=== PATIENT | male | born 1930 | race Caucasian/White ===

== ENCOUNTER 2018-12-31 09:23 | Emergency (ER) | payer MEDICARE, OTHER ==
[~2018-12-31] VITALS: Ht 172.7 cm; Wt 86.2 kg
[2018-12-31] MEDS ORDERED: HYDROCHLOROTHIA25 MG ORAL (09:41)
[2018-12-31] MEDS ORDERED: XARELTO10 MG ORAL (09:41)
[2018-12-31] MEDS ORDERED: METOPROLOL SUC100 MG ORAL (09:41)
[2018-12-31] MEDS ORDERED: ATORVASTATIN CA40 MG ORAL (09:41)
--- NOTE | 2018-12-31 10:48 | Emergency Room Report ---
History of Present Illness General Chief Complaint: Lower Extremity Injury Source: Patient Present Illness HPI This patient states that for the past 2 days he is noted some pain in his left foot. He denies any injury. He notes that this morning there was swelling on the top of his foot. He denies fever or chills. He denies nausea or vomiting. He has no other symptoms. Allergies: Coded Allergies: No Known Allergies (Unverified , 12/31/18) Patient History Past Medical History: see triage record, DM, HTN, CAD, AFib Social History: Denies: smoking, alcohol use, drug use Reviewed Nursing Documentation: PMH: Agreed; PSxH: Agreed Nursing Documentation-PMH Past Medical History: No History, Except For Hx Cardiac Problems: Yes - A-fib Hx Hypertension: Yes Hx Diabetes: Yes Hx Gastrointestinal Problems: Yes - Colostomy, Diverticulitis Review of Systems All Other Systems: negative except mentioned in HPI Physical Exam Vital Signs Date Time Temp Pulse Resp B/P (MAP) Pulse Ox O2 Delivery O2 Flow Rate FiO2 12/31/18 09:35 98.4 96 16 146/79 (101) 95 Room Air Sp02 EP Interpretation: reviewed, normal General Appearance: no apparent distress, alert, GCS 15, non-toxic Head: normocephalic, atraumatic Eyes: bilateral eye normal inspection, bilateral eye PERRL ENT: hearing grossly normal, normal pharynx, no angioedema, normal voice Respiratory: normal breath sounds, no respiratory distress, no retraction, no accessory muscle use, speaking full sentences Rectal: deferred Musculoskeletal: back normal, gait/station normal, normal range of motion, swelling - There is a localized area on the lateral dorsal foot approximately [id number] with some mild ecchymosis. Neurologic: alert, oriented x3, responsive, motor strength/tone normal, sensory intact, speech normal Psychiatric: judgement/insight normal, memory normal, mood/affect normal, no suicidal/homicidal ideation Skin: no rash, warm/dry, well hydrated, other - See above in MSK exam Medical Decision Making Diagnostic Impression: Primary Impression: Cellulitis Additional Impression: Cellulitis vs. insect bite ER Course This patient has a localized area of swelling, erythema and a slight ecchymoses that could be secondary to an insect bite versus an early cellulitis versus a localized allergic reaction. Go ahead and treat this patient with a course of antibiotics. I will also give the patient topical hydrocortisone cream. The patient was instructed to elevate the foot. X-ray of the foot is unremarkable. The patient was instructed to follow-up closely with his primary care physician. He is given close return precautions and follow-up instructions. Other X-Ray Diagnostic Results Other X-Ray Diagnostic Results : X-Ray ordered: L. foot # of Views/Limited Vs Complete: Complete Indication: Swelling EP Interpretation: Yes Interpretation: no dislocation, no fractures Impression: No acute disease Electronically Signed by: Alanna Acharya DO Last Vital Signs Date Time Temp Pulse Resp B/P (MAP) Pulse Ox O2 Delivery O2 Flow Rate FiO2 12/31/18 09:35 98.4 96 16 146/79 (101) 95 Room Air Status: improved Disposition: HOME, SELF-CARE Condition: Improved Alanna Acharya DO Dec 31, 2018 10:48
[2018-12-31] MEDS ORDERED: ANTI-ITCH28 G1 TP (10:52)
[2018-12-31] MEDS ORDERED: CEPHALEXIN500 MG ORAL (10:52)
[2018-12-31 11:12] VITALS: BP 137/70
--- NOTE | 2018-12-31 11:18 | Diagnostic Imaging Report ---
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 No acute fractures. No dislocations. There are small plantar and calcaneal spurs. Impression: No acute bony trauma
== END 2018-12-31 11:13 | disposition home or self-care (01) ==
LOC: EMR 09:59
DX: M79.672 Pain in left foot (principal); M79.89 Other specified soft tissue disorders; I10 Essential (primary) hypertension; E11.9 Type 2 diabetes mellitus without complications; I48.91 Unspecified atrial fibrillation; I25.10 Atherosclerotic heart disease of native coronary artery without angina pectoris; Z93.3 Colostomy status; Z87.19 Personal history of other diseases of the digestive system; M77.32 Calcaneal spur, left foot
CPT/HCPCS: 99283

== ENCOUNTER 2020-09-15 16:19 | Emergency (ER) | payer MEDICARE, OTHER ==
[~2020-09-15] VITALS: Ht 182.9 cm; Wt 86.2 kg
[~2020-09-15 16:19] MED LIST: ANTI-ITCH28 G1 TP; ATORVASTATIN CA40 MG ORAL; CEPHALEXIN500 MG ORAL; HYDROCHLOROTHIA25 MG ORAL; METOPROLOL SUC100 MG ORAL; XARELTO10 MG ORAL
[2020-09-15 16:32] VITALS: BP 140/90
[2020-09-15] MEDS ORDERED: Lidocaine 1% 10mg/ml/Epi 0.005mg/ml 30ml vial INJ ONE (16:45)
[2020-09-15] MEDS ORDERED: Lidocaine 1% 10mg/ml/Epi 0.005mg/ml 10ml INJ ONE (16:49)
--- NOTE | 2020-09-15 17:20 | Emergency Room Report ---
History of Present Illness General Chief Complaint: General Complaint Source: Patient Present Illness HPI Patient presents with continued bleeding lesion on his scalp. He had a surgical procedure to remove a skin cancer there earlier. He is taking Xarelto. He is soaked at least 2 dressings. Denies any history of anemia in the past. He feels no dizziness or shortness of breath. His tetanus is up-to-date. He denies any pain at the site. The patient states that he has multiple lesions of his skin. He feels this is related to exposure to fluorescent lighting. Patient takes Xarelto for prior stroke and atrial fibrillation. Patient denies exposure to Covid positive contacts. He recently received vaccination. No fevers, chills, sore throat, chest pain, palpitations, nausea, vomiting, diarrhea, dysuria, abdominal pain, joint pain, depression, anxiety, visual changes, dizziness, headache. 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 Reviewed Nursing Documentation: PMH: Agreed; PSxH: Agreed Nursing Documentation-PMH Hx Cardiac Problems: Yes - A-fib Hx Hypertension: Yes Hx Diabetes: Yes Hx Cancer: Yes Hx Gastrointestinal Problems: Yes - Colostomy, Diverticulitis Review of Systems All Other Systems: negative except mentioned in HPI Physical Exam Vital Signs Date Time Temp Pulse Resp B/P (MAP) Pulse Ox O2 Delivery O2 Flow Rate FiO2 09/15/20 16:32 98.2 76 18 140/90 (107) 97 Room Air Sp02 EP Interpretation: reviewed, normal General Appearance: well appearing, no apparent distress, GCS 15 Head: normocephalic, other - See skin Eyes: bilateral eye normal inspection, bilateral eye PERRL, bilateral eye EOMI ENT: moist mucus membranes Neck: normal inspection Respiratory: normal inspection Cardiovascular #1: regular rate, rhythm Cardiovascular #2: 2+ radial (R) Gastrointestinal: normal inspection Musculoskeletal: gait/station normal Neurologic: alert, grossly normal Psychiatric: mood/affect normal Skin: normal color, warm/dry, rash - 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 Lidocaine with epinephrine was applied to the lesion. There is still oozing and 1 arterial site. Bleeding areas were cauterized. The wound was left open and observed for bleeding control. A dressing with bacitracin, Vaseline gauze and 4 x 4's were applied. Patient tolerated the procedure well. Medical Decision Making Diagnostic Impression: Primary Impression: Post-op bleeding Qualified Codes: L76.21 - Postprocedural hemorrhage of skin and subcutaneous tissue following a dermatologic procedure Additional Impressions: anticoagulation History of atrial fibrillation History of stroke ER Course Patient presents post surgical procedure with bleeding from scalp lesion excision. The patient is on Xarelto. There is no evidence of infection at this time. Hemorrhage control is indicated. The patient's color is good and vital signs are excellent and no labs are indicated at this time. Please see procedure note. Hemorrhage control achieved. Discussed treatment plan with patient and further care. Patient stable for outpatient observation and treatment. Last Vital Signs Date Time Temp Pulse Resp B/P (MAP) Pulse Ox O2 Delivery O2 Flow Rate FiO2 09/15/20 16:54 Room Air 09/15/20 16:32 98.2 76 18 140/90 (107) 97 Status: improved Disposition: HOME, SELF-CARE Condition: Improved Scripts Bacitracin (Bacitracin) 28.4 Gm Oint...g. 1 APPLIC TOPIC BID, #10 GM Prov: Murali New MD 09/15/20 Referrals: Enrique Garcia MD (PCP) Murali New MD Sep 15, 2020 17:20
[2020-09-15] MEDS ORDERED: BACITRACIN15 GM TOPIC (17:25)
[2020-09-15] MEDS ORDERED: Bacitracin Oint UD TOPIC ONE (17:30)
== END 2020-09-15 17:58 | disposition home or self-care (01) ==
LOC: EMR 16:56
DX: L76.21 Postprocedural hemorrhage of skin and subcutaneous tissue following a dermatologic procedure (principal); I48.91 Unspecified atrial fibrillation; E11.9 Type 2 diabetes mellitus without complications; I10 Essential (primary) hypertension; Z85.9 Personal history of malignant neoplasm, unspecified; Z79.01 Long term (current) use of anticoagulants; Z86.73 Personal history of transient ischemic attack (TIA), and cerebral infarction without residual deficits
CPT/HCPCS: 99282